=== PATIENT | male | born 1970 | race Caucasian/White ===

== ENCOUNTER → 2017-11-09 06:38 | Day surgery (SDC) | payer BC ==
[~2017-11-09 06:38] MED LIST: Buffered Lidocaine 0.9% SYRIN* 5 ML/SYR SYRINGE INTRADERM ONE; Bupivacaine 0.25% W/EPI* 10 ML SDV ONE; DiMENhydriNATE IV* 50 MG/ML VIAL IV PUSH PRN; DiMENhydriNATE IV* 50 MG/ML VIAL ONE; EPHEDrine (Pressors)* 50 MG/ML VIAL ONE; Famotidine IV* 10 MG/ML 2 ML (20 mg) IV ONE; Famotidine IV* 10 MG/ML 2 ML (20 mg) ONE; HYDROcodone/ACETAMIN 5-325 MG* 1 TAB PO PRN; Lidocaine 2% PF * 5 ML VIAL ONE; Midazolam* 1 MG/ML 5 ML VIAL (5 MG) ONE; Naloxone* 0.4 MG/ML 1 ML VIAL IV PRN; Ondansetron INJ* 2 MG/ML VIAL ONE; Propofol* 10 MG/ML 20 ML BTL IV PUSH ONE; Rocuronium* 10 MG/ML VIAL ONE; ceFAZolin 1 GM VIAL(*) ONE; ceFAZolin 2 GM PREMIX in ORs 2 GM/50 ML BAG IVPB ONE; ceFAZolin 2 GM in NS PREMIX(*) 2 GM/100 ML BAG IVPB ONE; fentaNYL* 50 MCG/ML 2 ML VIAL (100 MCG VIAL) ONE; fentaNYL* 50 MCG/ML 5 ML VIAL (250 MCG VIAL) ONE; oxyCODONE/Acetamin 5/325 MG* TAB ONE
[2017-11-09] MEDS: fentaNYL* 50 MCG/ML 2 ML VIAL (100 MCG VIAL) IV PRN ×3 (14:45→19:22)
[2017-11-09] MEDS: oxyCODONE/Acetamin 5/325 MG* TAB PO PRN ×2 (15:19→16:53)
[2017-11-09 19:38] VITALS: BP 126/79
--- NOTE | 2017-11-11 22:20 | OP ---
DATE OF OPERATION: 11/09/17 - [facility] DATE OF : 70 SURGEON: Dr. Arvin Cabral. NANOTECHNICIAN: DINESH Dos Santos. A physician culture media laboratory assistant was required for the length of the procedure for assistance with positioning, retraction, instrumentation and closure. ANESTHESIOLOGIST: Dr. Payton Roland. ANESTHESIA: General anesthesia, local anesthesia consisting of 30 cc of 0.25% Marcaine with epinephrine. PRE-OP DIAGNOSIS: Left proximal hamstring tendon rupture. POST-OP DIAGNOSIS: Left proximal hamstring tendon rupture. OPERATIVE PROCEDURE: Open left proximal hamstring tendon repair. A modifier 22 is being added to this procedure due to the complexity of the procedure, it' s severity, as well as the requirement of some neurolysis of the sciatic nerve during the procedure. ANTIBIOTICS: Ancef 2 g IV was provided at the start and towards the end of the procedure. The second dose was given because the procedure was almost 4 hours long. IV FLUIDS: 2000 cc crystalloid. SEQT-OA-HSNG TIME: 231 minutes. POSITIONING: Prone positioning. SPECIMEN: None. IMPLANTS: [employer] Titanium 3.5-mm suture anchors, double loaded x2. [employer] Healix BioComposite suture anchor 4.5-mm in size x1. COMPLICATIONS: None. ESTIMATED BLOOD LOSS: Less than 200 cc. INDICATIONS FOR PROCEDURE: The patient is a 47-year-old man, construction job cost estimator, an avid weightlifter, and admitted anabolic steroid user, who injured his left posterior thigh on 10/27/17, 13 days prior to the surgical procedure. The patient was trying to grab his girlfriend to capture when she fell. The patient misstepped and felt sharp pain about the left buttocks. The patient did not remember a prior injury to that site although he acknowledged that given his weight lifting and work life, he is generally hard on his body. The patient was seen by a local physician and referred to me. MRI had already been ordered at my request, which demonstrated a retracted tear, greater than 4 to 5 cm of all 3 tendons that originate at the ischial tuberosity. I discussed pros and cons of nonoperative and operative management with the patient extensively. I discussed the time table and nature of recovery with nonoperative and operative management. The patient opted for surgery. I discussed risks and potential complications of surgery including bleeding, infection, nerve or blood vessel injury, persistent buttock pain, wound breakdown, hamstring re-rupture. I discussed hip brace and/or knee brace use postoperatively, limited weight-bearing postoperatively and returned to work and sport. The patient opted for surgical procedure. DESCRIPTION OF PROCEDURE: In preoperative holding, the patient signed a written consent. Operative extremity was marked in the preoperative holding. The patient was brought back to the operating room and intubated on the stretcher. The patient was flipped over prone on the operating room table. We flexed the bed approximately 20 degrees at the level of the buttocks. The body was well padded. Axilla were free bilaterally. Upper extremities were resting comfortably. The posterior aspect of the proximal left thigh was shaved of hair. A nonsterile U-drape was applied. The left lower extremity was prepped with chlorhexidine and ChloraPrep and then draped. Surgical time-out was performed. A hockey stick incision was made in line with the ischial tuberosity, which was palpable. I exchanged knives and I used knife, electrocautery, and scissors dissection to dissect through the subcutaneous tissue down to the level of the gluteus german. I was careful to avoid nerve branches, of the posterior femoral cutaneous nerve. I identified the gluteus german. I also identified the hamstring fascia running longitudinally. I made an incision, transverse in the gluteus german fascia and retracted the gluteus german proximally. I then made a gluteus snip, approximately 3 to 4 cm in length. I left tagging stitches in place to reapproximate later in the procedure. I incised the hamstring fascia longitudinally and encountered all 3 tendons enclosed in the same stump. I identified the sciatic nerve more laterally, but it was encased in some amount of scar along much of its length. I wanted to make sure that there were no additional musculotendinous unit attached to the sciatic. I also wanted to untether the sciatic nerve from the proximal hamstring. There was scarring of the sciatic to the proximal hamstring already. Very carefully using finger and scissor dissection, I performed a neurolysis of the sciatic nerve, freeing it from scar tissue that had encased much of its visible length. This allowed me to mobilize the hamstring tendons which I did with two tagging stitches, without also moving the sciatic nerve. This may be comfortable that I would be minimizing future numbness and tingling that is often brought about by tethering of this nerve. I debrided some of the unhealthy tissue from the proximal end of the 3 tendons. I next looked proximally to the ischial tuberosity. I debrided soft tissue from the origin of footprint using rongeur and curette. I established a nice surface of bone to get good healing to. I planned out my number of anchors based on the size of the footprint. I decided I wanted either 3 or 4 anchors. I next placed the anchors. I placed 2 [employer]hew anchors each 3.5 mm in size, Titanium, double loaded. Those were more distally placed. I then went to place a proximal anchor, the same, Titanium 3.5-mm [employer]. This anchor stopped advancing when it was midway through. I could not advance it further nor remove it. I tried to back it out in a number of ways. Since it would not move, I took a high-speed kelli and debrided the exposed amount of metal. I irrigated and sucked up all the metal detritus from that anchor. I chose a Biocomposite anchor and so picked a [employer] Healix 4.5-mm suture anchor. I placed that and it had two sutures in it. I next placed my sutures into the proximal hamstring. I made 2 Deborah hicks using one set sutures from each of the more proximal anchors. I then tied 4 horizontal mattress stitches using sutures from all 3 anchors. I liked the firmness of my repair. The sutures were tied with the knee in approximately 30 degrees of flexion. It did not seem overly tight. Irrigation. I confirmed that my sciatic nerve was freely mobile after the repair. I placed several [id number] stitches in the hamstring tendon fascia. Irrigation. Closure of subcutaneous tissue with buried simple stitches using Vicryl suture. A closure of the subcuticular layer with a running stitch using Monocryl 3-0 suture. Dermabond was used to close the skin. 4x4s and then Tegaderm were applied as a dressing. I then applied some additional foam tape along the medial aspect of it. With the patient in the prone position, we applied a hip brace. We then converted the patient to the supine position on a stretcher and the patient was eventually extubated and brought to the PACU. The patient was to be discharged home when medically stable. For pain control, the patient was given Percocet as needed. For muscle spasms, he was given Valium p.r.n. Given the patient's increased risk of blood clots given his anabolic steroid use, I will have him on Lovenox for 2 weeks and then aspirin for an additional 4 weeks. He will be on Keflex for 1 week for infection prophylaxis. The patient will be in his hip brace at all times with limited flexion. I will give him the option of starting physical therapy next week. The patient will present to me in 10 to 14 days postoperative for a wound check. [id number]/[facility] #: [id number] JOEL
== END | disposition home or self-care (01) ==
LOC: OR 06:38
PROVIDERS: ATTEND Orthopaedic Surgery
DX: S76.812A Strain of other specified muscles, fascia and tendons at thigh level, left thigh, initial encounter (principal); W18.49XA Other slipping, tripping and stumbling without falling, initial encounter; Y92.89 Other specified places as the place of occurrence of the external cause; Z72.0 Tobacco use; I10 Essential (primary) hypertension; I44.0 Atrioventricular block, first degree; G47.33 Obstructive sleep apnea (adult) (pediatric); R53.83 Other fatigue
CPT/HCPCS: A9270-GY; C1713; J0690; J1240; J2250; J2405; J2704; J3010

== ENCOUNTER 2023-12-31 05:40 | Observation (INO) ==
[~2023-12-31 05:40] MED LIST changes: -Buffered Lidocaine 0.9% SYRIN* 5 ML/SYR SYRINGE INTRADERM ONE; -Bupivacaine 0.25% W/EPI* 10 ML SDV ONE; -DiMENhydriNATE IV* 50 MG/ML VIAL IV PUSH PRN; -DiMENhydriNATE IV* 50 MG/ML VIAL ONE; -EPHEDrine (Pressors)* 50 MG/ML VIAL ONE; -Famotidine IV* 10 MG/ML 2 ML (20 mg) IV ONE; -Famotidine IV* 10 MG/ML 2 ML (20 mg) ONE; -HYDROcodone/ACETAMIN 5-325 MG* 1 TAB PO PRN; +Lidocaine 1% w EPI 1:100,000 MDV 20 ML VIAL ONE; -Lidocaine 2% PF * 5 ML VIAL ONE; -Midazolam* 1 MG/ML 5 ML VIAL (5 MG) ONE; +Naloxone 0.4 mg VIAL 0.4 mg/ml 1 ml VIAL IV PRN; -Naloxone* 0.4 MG/ML 1 ML VIAL IV PRN; +Ondansetron 4 mg VIAL 2 MG/ML 2 ml VIAL IV PRN; -Ondansetron INJ* 2 MG/ML VIAL ONE; -Propofol* 10 MG/ML 20 ML BTL IV PUSH ONE; -Rocuronium* 10 MG/ML VIAL ONE; -ceFAZolin 1 GM VIAL(*) ONE; -ceFAZolin 2 GM PREMIX in ORs 2 GM/50 ML BAG IVPB ONE; -ceFAZolin 2 GM in NS PREMIX(*) 2 GM/100 ML BAG IVPB ONE; +ceFAZolin VIAL VIAL ONE; +fentaNYL 100 mcg/2 ml 50 MCG/ML VIAL IV PRN; -fentaNYL* 50 MCG/ML 2 ML VIAL (100 MCG VIAL) ONE; -fentaNYL* 50 MCG/ML 5 ML VIAL (250 MCG VIAL) ONE; -oxyCODONE/Acetamin 5/325 MG* TAB ONE
[2023-12-31] MEDS ORDERED: ceFAZolin 2 GM PREMIX 2 GM/50 ML BAG ONE (06:14)
[2023-12-31] MEDS ORDERED: Tranexamic Acid 1 GM/100ML BAG 2,000 MG/200 ML BAG IV ONE (06:14)
[2023-12-31] MEDS ORDERED: Midazolam 2 mg/2 ml VIAL 1 mg/ml 2 ml VIAL (2 mg) ONE (06:54)
[2023-12-31] MEDS ORDERED: fentaNYL 100 mcg/2 ml 50 MCG/ML VIAL ONE (06:55)
[2023-12-31 06:56] LABS: Rapid COVID-19 Molecular Undetected (Undetected)
[2023-12-31] MEDS ORDERED: Rocuronium 50 mg VIAL 10 mg/ml 5 ml VIAL (50 mg) ONE ×3 (06:56→09:29)
[2023-12-31 07:08] LABS: Urine Appearance Clear; Urine Bilirubin Negative (Negative); Urine Blood Negative (Negative); Urine Color Colorless; Urine Glucose Negative (Negative); Urine Ketones Negative (Negative); Urine Nitrite Negative (Negative); Urine Protein Negative (Negative); Urine Specific Gravity 1.014 (1.002-1.030); Urine Urobilinogen Negative (Negative)
[2023-12-31] MEDS ORDERED: ROPIVACAINE 5 MG/ML 30 ML BTL (0.5%) ONE (07:19)
[2023-12-31] MEDS ORDERED: HYDROmorphone 0.5 MG/0.5 ML SYRINGE IV SLOW PU PRN (08:00)
[2023-12-31 08:02] LABS: INR 0.87 (0.85-1.14)
[2023-12-31] MEDS ORDERED: KETAMINE HCL 10 MG/ML 20 ml VIAL (200 MG) ONE (08:11)
[2023-12-31] MEDS ORDERED: Dexamethasone IV 4 MG/ML VIAL 1 ml VIAL ONE (08:12)
[2023-12-31] MEDS ORDERED: Ondansetron 4 mg VIAL 2 MG/ML 2 ml VIAL ONE (08:12)
[2023-12-31] MEDS ORDERED: HYDROmorphone 0.5 MG/0.5 ML SYRINGE ONE ×2 (09:40→11:06)
[2023-12-31] MEDS ORDERED: Magnesium Hydroxide LIQ 30 ML UDC PO PRN (13:28)
[2023-12-31] MEDS ORDERED: Ondansetron 4 mg VIAL 2 MG/ML 2 ml VIAL IV PRN (13:28)
[2023-12-31] MEDS ORDERED: Ondansetron ODT 4 mg TAB 4 MG TAB PO PRN (13:28)
[2023-12-31] MEDS ORDERED: Lactulose 30 ml UDC PO PRN (13:28)
[2023-12-31] MEDS: Buffered Lidocaine 1% SYRIN 1 ml INTRADERM ONE ×2 (14:19→14:20)
[2023-12-31] MEDS: Lactated Ringers 1000 ml BAG 1,000 ML IV SCH ×3 (14:20→14:48)
[2023-12-31] MEDS: Famotidine IV 10 MG/ML 2 ml VIAL (20 mg) IV ONE (14:20)
[2023-12-31] MEDS: ceFAZolin 2 GM PREMIX 2 GM/50 ML BAG IVPB SCH (15:59)
[2023-12-31 16:37] VITALS: BP 131/75
[2023-12-31] MEDS ORDERED: Magnesium Hydroxide LIQ 30 ML UDC PO SCH (21:00)
[2024-01-01] MEDS ORDERED: Vitamin THERAPEUTIC TAB PO SCH (09:00)
== END 2023-12-31 18:03 | disposition home or self-care (01) ==
LOC: SSU 05:40 → OR 05:40 → SSU 12:46
PROVIDERS: ADMIT Orthopaedic Surgery; ATTEND Orthopaedic Surgery